=== PATIENT | male | born 1965 | race Caucasian/White ===

== ENCOUNTER 2020-05-26 07:16 | Outpatient (REF) | payer OTHER, SELFPAY ==
--- NOTE | 2020-05-26 | MR_ITS ---
EXAMINATION: MR LUMBAR SPINE WITHOUT CONTRAST CLINICAL INFORMATION: Radiculopathy. History of large disc extrusion with stenosis/annular tearing. Bilateral sciatic pain. Bilateral leg pain, weakness, and numbness. COMPARISON: Lumbar spine radiographs dated 11/24/2013 TECHNIQUE: MRI of the lumbar spine was obtained using routine sequences without contrast. FINDINGS: VERTEBRAL BODIES AND PARASPINAL STRUCTURES: Straightening of the normal lumbar lordosis, which may be positional or related to muscular spasm. No acute fracture or subluxation. No loss of vertebral body height. Prominent multilevel loss of intervertebral disc height with endplate osteophytes. Heterogeneous marrow signal, which may be related to degenerative endplate changes. The visualized paraspinal soft tissues are unremarkable. CONUS MEDULLARIS AND CAUDA EQUINA: Normal, terminating at the level of L1. SPINAL LEVELS: T12-L1: Shallow broad-based disc bulge with a left extraforaminal disc-osteophyte complex which contacts the exiting left T12 nerve root. Bilateral facet arthropathy and thickening of the ligamentum flavum with minimal central canal and mild left neural foraminal stenosis. L1-L2: Broad-based disc-osteophyte complex, asymmetric to the left with bilateral facet arthropathy and thickening of the ligamentum flavum causing mild central canal as well as mild left neural foraminal stenosis. Minimal right neural foraminal stenosis. L2-L3: Prominent broad-based disc-osteophyte complex, asymmetric to the left which contacts the exiting left L2 nerve root. Bilateral facet arthropathy and thickening of the ligamentum flavum causing ocov-tb-[id number] central canal stenosis as well as cjcc-tm-rpyclewn left and mild right neural foraminal stenosis. L3-L4: Broad-based disc-osteophyte complex, asymmetric to the right which contacts the right exiting L3 nerve root. Prominent bilateral facet arthropathy and thickening of the ligamentum flavum causing [id number] central canal stenosis as well as moderate bilateral neural foraminal stenosis. L4-L5: Broad-based disc-osteophyte complex with a left paracentral disc protrusion. Prominent bilateral facet arthropathy and thickening of the ligamentum flavum. This causes severe central canal stenosis as well as [id number] bilateral neural foraminal stenosis. L5-S1: Broad-based disc bulge with bilateral facet arthropathy and thickening of the ligamentum flavum causing moderate central canal as well as severe bilateral neural foraminal stenosis. MR/MR lumbar spine wo con IMPRESSION: 1. L4-L5 broad-based disc-osteophyte complex with a left paracentral disc protrusion, bilateral facet arthropathy, and thickening of the ligamentum flavum. This causes severe central canal stenosis as well as [id number] bilateral neural foraminal stenosis. 2. L5-S1 broad-based disc bulge with bilateral facet arthropathy and thickening of the ligamentum flavum causing moderate central canal as well as severe bilateral neural foraminal stenosis. 3. Additional multilevel degenerative disc disease with disc-osteophyte complexes, central canal, and bilateral neural foraminal stenosis, as above.
== END 2020-05-26 07:17 | disposition home or self-care (01) ==
LOC: HO.MRI 07:16
PROVIDERS: PCP Internal Medicine; Visit Provider Nurse Practitioner Women's Health
DX: M54.17 Radiculopathy, lumbosacral region (principal)
CPT/HCPCS: 72148

== ENCOUNTER 2021-07-06 07:15 | Outpatient (REF) | payer OTHER, SELFPAY ==
--- NOTE | ~2021-07-06 | XR_ITS ---
EXAMINATION: XR HIP, LEFT CLINICAL INFORMATION: Pain COMPARISON: None TECHNIQUE: Two views of the left hip. FINDINGS: Bone alignment is normal. No fracture or dislocation is seen. There is arthritis at the left hip joint with joint space narrowing and osteophyte formation. Soft tissues are unremarkable. XR/XR hip LT min 2V IMPRESSION: Left hip arthritis.
[2021-07-06 07:34] LABS: MANUAL DIFF FLAG NO
[2021-07-06 08:02] LABS: Basophils Percent Auto 0.4 % (0-2); Eosinophils Absolute Auto 0.2 X10*3/uL (0.0-0.4); Eosinophils Percent Auto 2.3 % (0-4); Hematocrit 45.4 % (42.0-52.0); Hemoglobin 15.5 g/dl (14.0-18.0); Imm Gran Abs Auto 0.03 X10*3/uL (0.00-0.03); Imm Gran Pct Auto 0.4 % (0.0-0.4); Lymphocytes Absolute Auto 1.6 X10*3/uL (1.2-4.9); Lymphocytes Percent Auto 21.1 % (20-40); Mean Corpuscular HGB Conc 34.1 g/dl (31.0-36.0); Mean Corpuscular Hemoglobin 31.8 pg (27.0-33.0); Mean Platelet Volume 9.7 fL (9.4-12.4); Monocytes Absolute Auto 0.4 X10*3/uL (0.1-1.2); Monocytes Percent Auto 5.9 % (2-11); Neutrophils Absolute Auto 5.2 x10*3/uL (2.0-8.3); Neutrophils Percent Auto 69.9 % (45-73); Platelet Count 296 X10*3/uL (160-400); Red Blood Count 4.88 X10*6/uL (4.60-5.80); Red Cell Distribution Width 13.5 % (11.0-16.0); White Blood Count 7.5 X10*3/uL (4.8-10.8)
[2021-07-06 08:21] LABS: Alanine Aminotransferase 23 U/L (0-40); Albumin Level 4.3 g/dL (3.5-5.0); Alkaline Phosphatase 83 U/L (39-117); Anion Gap 11 (12-20); Aspartate Amino Transferase 18 U/L (5-37); Bilirubin Total 0.4 mg/dL (0.0-1.0); Blood Urea Nitrogen 21 mg/dL (9-16); Calcium 9.5 mg/dL (8.4-10.2); Carbon Dioxide 27 mmol/L (22-29); Chloride 104 mmol/L (96-108); Cholesterol 273 mg/dL; Estimated Glomerular Filt Rate > 60; Glucose Fasting 109 mg/dL (60-99); HDL Cholesterol 54 mg/dL; LDL Cholesterol Calculated 198 mg/dl; Magnesium 2.3 mg/dL (1.6-2.6); Potassium 4.4 mmol/L (3.3-5.1); Sodium 138 mmol/L (135-145); Total Protein 6.9 g/dL (6.5-8.0); Triglycerides 105 mg/dL
[2021-07-06 08:43] LABS: TSH reflex Free T4 1.29 uIU/mL (0.32-4.0); Vitamin D 25-OH Total 13.3 ng/mL (>30)
[2021-07-06 08:52] LABS: Erythrocyte Sedimentation Rate 7 MM/HR (0-15)
[2021-07-06 10:08] LABS: Appearance Urine CLEAR; Color Urine YELLOW; Glucose Urine UA NEG (NEG); Leukocyte Esterase Urine NEG (NEG); Nitrite Urine NEG (NEG); Urine Blood NEG (NEG); Urine Ketones NEG (NEG); Urine Protein NEG (NEG-TRACE)
[2021-07-06 12:10] LABS: Folate 3.6 ng/mL (> or = 4.0); Vitamin B12 406 pg/mL (200-900)
== END 2021-07-06 07:16 | disposition home or self-care (01) ==
LOC: HO.LAB 07:15
PROVIDERS: PCP Internal Medicine; Visit Provider Internal Medicine
DX: M25.552 Pain in left hip (principal); E78.00 Pure hypercholesterolemia, unspecified; E55.9 Vitamin D deficiency, unspecified; I73.9 Peripheral vascular disease, unspecified; R20.2 Paresthesia of skin; I10 Essential (primary) hypertension
CPT/HCPCS: 36415; 73502; 80053; 80061; 81003; 82306; 82607; 82746; 83735; 84443; 85025; 85652

== ENCOUNTER 2021-08-06 09:14 | Outpatient (AMB) | payer OTHER, SELFPAY ==
[2021-08-06 09:21] VITALS: BP 152/90; PULSE 68; TEMP 36.4; O2SAT 98; BMI 30.5
--- NOTE | 2021-08-06 09:21 | MHC.PC.OV ---
Vital Signs 08/06/21 09:21 Height 5 ft 7 in Weight 195 lb BMI 30.5 BP 152/90 H Pulse 68 Pulse Source Pulse Oximeter Temp 97.5 F Pulse Oximetry (%) 98 Oxygen Delivery Method Room Air Intake Visit Reasons: 1 Month Follow Up [employer] Required: No Accompanied by: Self / Same As Patient Allergies No Known Drug Allergies Allergy (Mild, Verified 01/12/25 10:48) Unknown Medication List - Last Reconciled 08/06/21 by Lucio Muir MD No Known Home Meds Tobacco use date assessed: 08/06/21 HPI 1 Month Follow Up HPI Details Patient comes in today for his follow up visit States that he feels okay Is scheduled for his arterial studies of the lower extremities tomorrow Denies any headaches or dizziness Denies any chest pains, no SOB No nausea/vomiting, no abdominal pain No change in bowel habits noted Had his follow up labs done last month - to discuss his results [facility] Medical History (Updated 01/12/25 @ 10:57 by Lucio Muir MD) Vitamin D deficiency Alcohol use disorder Overweight (BMI 25.0-29.9) Osteoarthritis of left hip Smoker Lumbar degenerative disc disease Pure hypercholesterolemia Surgical History History of nasal surgery Family History Mother Heart problem Arthritis Father Kidney failure Alcohol abuse Other Substance abuse Social History Housing: House Alcohol intake: current Alcohol intake frequency: 3 or more drinks per day Alcohol type: beer Patient Tobacco Use Status: Current everyday Tobacco user Cigarette Packs Per Day: 1.5 e-Cigarette/Vaping Use: Never Used Second Hand Smoke Exposure: Yes service: No Current occupational status: unemployed Cognitive needs: No Hearing needs: No Vision needs: No Questionnaire PHQ-9 Over the last 2 weeks, how often have you been bothered by any of the following problems? 1. Little interest or pleasure in doing things: not at all 2. Feeling down, depressed, or hopeless: not at all 3. Trouble falling or staying asleep, or sleeping too much: not at all 4. Feeling tired or having little energy: not at all 5. Poor appetite or overeating: not at all 6. Feeling bad about yourself - or that you are a failure or have let yourself or your family down: not at all 7. Trouble concentrating on things, such as reading the newspaper or watching television: not at all 8. Moving or speaking so slowly that other people could have noticed. Or the opposite - being so fidgety or restless that you have been moving around a lot more than usual: not at all 9. Thoughts that you would be better off or of hurting yourself in some way: not at all Total score: 0 Depression Screening Interpretation: Negative 18544 - PHQ-9 Billing: Yes Source: Developed by Drs. Oscar Jolly, Miriam Riley, Darryn Prieto and colleagues, with an educational madhav from [employer]. Thrive Questionnaire Date Thrive assessed: 08/06/21 I am a: Patient What is your living situation today?: I have a steady place to live Within the past 12 months, did the food you bought not last and you didn't have the money to get more?: Never true Within the past 12 months, did you worry whether your food would run out before you got money to buy more?: Never true Do you have trouble paying for medicines?: No Do you have trouble getting transportation to medical appointments?: No Do you have trouble paying your heating and electricity bill?: No Do you have trouble taking care of your child, family member or friend?: No Do you have trouble with day-to-day activities such as bathing, preparing meals, shopping, managing finances, etc.?: No Are you currently unemployed and looking for a job?: No Are you interested in more education?: No Currently or been in a relationship where the following occur: no concerns reported AUDIT C Alcohol Use Questionnaire (AUDIT-C) 1. How often do you have a drink containing alcohol?: 4 or more times a week 2. How many drinks containing alcohol do you have on a typical day when you are drinking?: 1 or 2 3. How often do you have six or more drinks on one occasion?: Never Total Score: 4 Score Reviewed/Action Taken: Yes WILLAM-7 AMB Questionnaire WILLAM-7 Date WILLAM - 7 assessed: 08/06/21 Feeling nervous, anxious, or on edge: 0 = Not at all Not being able to stop or control worryin = Not at all Worrying too much about different things: 0 = Not at all Trouble relaxin = Not at all Being so restless that it is hard to sit still: 0 = Not at all Becoming easily annoyed or irritable: 0 = Not at all Feeling afraid as if something awful might happen: 0 = Not at all Total WILLAM-7 score (0-4 normal; 5-9 mild; 10-14 moderate; 15-21 severe): 0 Source: Developed by Drs. Oscar Jolly, Miriam Riley, Darryn Prieto and colleagues, with an educational madhav from [employer]. Review of Systems Const Denies chills, Denies fatigue, Denies fever(s) and Denies headache(s) ENT Denies headache(s), Denies sinus pain and Denies sore throat Card Denies chest pain, Denies palpitations and Denies dyspnea Resp Denies cough and Denies dyspnea GI Denies abdominal pain, Denies constipation, Denies heartburn, Denies diarrhea, Denies nausea and Denies vomiting Denies dysuria and Denies nocturia Musc Reports numbness (on and off in the right arm) Neuro Details: left leg feels heavy often, especially with increased activity; left foot feels cold and numb at times Denies headache(s) and Reports numbness (on and off in the right arm) Endo Denies fatigue and Denies palpitations Physical exam (Primary Care) Vital Signs: Last Vital Signs Temp 97.5 F 08/06/21 09:21 Pulse 68 08/06/21 09:21 BP 152/90 H 08/06/21 09:21 Pulse Ox 98 08/06/21 09:21 Oxygen Delivery Method Room Air 08/06/21 09:21 BMI result Body Mass Index 30.5 Tobacco/Smoking Status: Tobacco use Status Tobacco use date assessed 08/06/21 08/06/21 09:23 Patient Tobacco Use Status Current everyday Tobacco 08/06/21 09:23 PHQ-9: PHQ-9 Score PHQ-9: Total score 0 08/06/21 09:51 Depression Screening Interpretation: Negative Thrive Assessment: Date of Thrive Assessment Date Thrive assessed 08/06/21 08/06/21 09:23 Currently or been in a relationship where the following occur: no concerns reported Const General: no acute distress and alert HENMT Ears: TM's normal bilaterally and EAC's normal Throat: Yes posterior oropharynx normal and Yes tonsils normal (no TP congestion) Neck Neck: Yes no lymphadenopathy and Yes supple Resp Auscultation: clear to auscultation bilaterally, no rales and no wheezes Cardio Rate: regular rate Rhythm: regular rhythm Heart sounds: no murmurs GI Palpation (GI): Soft to palpation, nontender and No hepatosplenomegaly present Skin General skin exam: no rashes or lesions noted Extrem General: Yes no clubbing, cyanosis or edema Results Reviewed Results Reviewed: Laboratory Tests 07/06/21 07/06/21 07/06/21 07:30 07:32 07:32 WBC 7.5 Hgb 15.5 Hct 45.4 Plt Count 296 ESR 7 Sodium Potassium Creatinine Estimated GFR Fasting Glucose Calcium Magnesium AST ALT Triglycerides Cholesterol LDL Cholesterol, Calc HDL Cholesterol Vitamin B12 25-OH Vitamin D Total TSH Ur Specific [place] 1.020 Urine Protein NEG Urine Glucose (UA) NEG Urine Blood NEG 07/06/21 07/06/21 07:32 07:32 WBC Hgb Hct Plt Count ESR Sodium 138 Potassium 4.4 Creatinine 0.94 Estimated GFR > 60 Fasting Glucose 109 H Calcium 9.5 Magnesium 2.3 AST 18 ALT 23 Triglycerides 105 Cholesterol 273 LDL Cholesterol, Calc 198 HDL Cholesterol 54 Vitamin B12 406 25-OH Vitamin D Total 13.3 TSH 1.29 Ur Specific [place] Urine Protein Urine Glucose (UA) Urine Blood Coding Level of Care Code Admin Sign Off/No Billing Diagnoses Claudication of left lower extremity I73.9 Pure hypercholesterolemia E78.00 Lumbar degenerative disc disease M51.36 Paresthesia of right upper limb R20.2 Osteoarthritis of left hip M16.12 Impaired fasting glucose R73.01 Smoker F17.200 Obesity (BMI 30-39.9) E66.9 Additional Codes PHQ-9 - 46344 - PHQ-9 Billing: Yes ([id number])
== END 2021-08-06 10:02 | disposition home or self-care (01) ==
LOC: HO.HMGH 09:14
PROVIDERS: PCP Internal Medicine; Visit Provider Internal Medicine
DX: I73.9 Peripheral vascular disease, unspecified (principal); E78.00 Pure hypercholesterolemia, unspecified; M51.36 Other intervertebral disc degeneration, lumbar region; R20.2 Paresthesia of skin; M16.12 Unilateral primary osteoarthritis, left hip; R73.01 Impaired fasting glucose; F17.200 Nicotine dependence, unspecified, uncomplicated; E66.9 Obesity, unspecified
CPT/HCPCS: 96127; 99499

== ENCOUNTER 2021-08-07 09:17 | Outpatient (REF) | payer OTHER, SELFPAY ==
--- NOTE | ~2021-08-07 | US_ITS ---
EXAMINATION: NONINVASIVE ASSESSMENT OF THE ARTERIES OF BOTH LOWER EXTREMITIES WITH BILATERAL LOWER EXTREMITY DUPLEX CLINICAL INFORMATION: Peripheral vascular disease TECHNIQUE: Bilateral lower extremity duplex Doppler techniques with wave form analysis and measurement of velocities in the common femoral, profunda femoral, superficial femoral, popliteal and tibial arteries. The study was performed only at rest. COMPARISON: None FINDINGS: a) AT REST: RIGHT LE. Right direct duplex Doppler findings: There is calcified atherosclerotic plaque. * Common femoral artery: 125 cm/s, Diastolic flow reversal: Yes * Superficial femoral artery (proximal, mid, distal): 108, 83 and 113 cm/s, Diastolic flow reversal: Yes * Popliteal artery: 76 cm/s, Diastolic flow reversal: Yes * Posterior tibial artery: 94 cm/s, Diastolic flow reversal: Yes LEFT LE. Left direct duplex Doppler findings: There is calcified atherosclerotic plaque * Common femoral artery: 165 cm/s, Diastolic flow reversal: Yes * Superficial femoral artery (proximal, mid, distal): 78, 67 and 84 cm/s, Diastolic flow reversal: No, biphasic in the proximal and mid SFA and triphasic in the distal SFA * Popliteal artery: 37 cm/s, Diastolic flow reversal: No, biphasic * Posterior tibial artery: 56 cm/s, Diastolic flow reversal: Yes * US/US arterial duplex LE BI IMPRESSION: Right leg: Mild calcified plaque. No visible stenosis. Normal peak systolic velocities and waveforms. Left: Mild calcified plaque. No visible stenosis. Increased peak systolic velocity in the left common femoral artery suggestive of mild stenosis. Abnormal waveforms in the proximal and mid SFA, and popliteal arteries and slightly decreased velocities compared to the right leg.
== END 2021-08-07 09:18 | disposition home or self-care (01) ==
LOC: HO.US 09:17
PROVIDERS: PCP Internal Medicine; Visit Provider Internal Medicine
DX: I73.9 Peripheral vascular disease, unspecified (principal); E78.00 Pure hypercholesterolemia, unspecified
CPT/HCPCS: 93925

== ENCOUNTER 2021-11-06 02:18 | Emergency (ER) | payer OTHER, SELFPAY ==
[2021-11-06 02:35] VITALS: BP 169/87; PULSE 59; RESP 16; TEMP 36.6; O2SAT 97; BMI 28.5
--- NOTE | 2021-11-06 06:16 | ED_ITS ---
HPI - General Adult General Chief complaint: General Medical Stated complaint: toe infection Time Seen by Provider: 11/06/21 06:15 History of Present Illness HPI narrative: patient is a 56-year-old male presents today with having left 5th toe pain has been ongoing for the last few weeks. Patient was wearing a very tight boot. Complaining of pain worsen with steps. No fever no chills no nausea no vomiting. No systemic complaints. no history of diabetes Related Data Previous Rx's Medication Instructions Recorded cephalexin 500 mg capsule 500 mg PO TID 7 days #21 caps 11/06/21 Allergies Allergy/AdvReac Type Severity Reaction Status Date / Time No Known Drug Allergies Allergy Mild Unknown Verified 08/06/21 09:45 Review of Systems 2 Review of Systems: Positive pain to the toe PMFSH Past Medical History Attestation statement: The following information was validated with the patient. Medical History Lumbar degenerative disc disease Obesity (BMI 30-39.9) Osteoarthritis of left hip Pure hypercholesterolemia Smoker Surgical History History of nasal surgery Family History Family History Mother Heart problem Arthritis Father Kidney failure Alcohol abuse Other Substance abuse Social History Social History Housing: House Alcohol intake: current Alcohol intake frequency: 3 or more drinks per day Alcohol type: beer Patient Tobacco Use Status: Current everyday Tobacco user Cigarette Packs Per Day: 1.5 Second Hand Smoke Exposure: Yes Advance Directives: No service: No Current occupational status: unemployed Cognitive needs: No Hearing needs: No Vision needs: No Physical Exam ED Vital Signs: Vital Signs - 24 hr 11/06/21 02:35 Temperature 97.8 F Pulse Rate 59 Respiratory Rate 16 Blood Pressure 169/87 H Pulse Oximetry 97 Oxygen Delivery Method Room Air BMI result Body Mass Index 28.5 Appearance: Alert. Oriented X3. No acute distress. Eyes: Pupils equal, round and reactive to light. ENT: Pharynx normal. Neck: Normal inspection. Neck supple. No lymph nodes noted. No crepitus CVS: Normal heart rate and rhythm. Pulses normal. Normal S1 and S2 Respiratory: No respiratory distress. Breath sounds normal. No Wheezing. No rales Abdomen: Soft and nontender. No rigidity. No distention. good BS x4 Skin: Skin warm and dry. Normal skin color. Normal skin turgor. Extremities: No lower extremity edema. examination of the left foot the pinky toe has a hematoma on the palmar side. Sensation grossly intact there is no warmth to touch. Neuro: Oriented X 3. No motor deficit. No sensory deficit. Moving all extermities. No slurred speech Medical Decision Making MDM Narrative Medical decision making narrative: Question hematoma causing patient's pain. No signs of infection at this time. There is no redness there is no warmth to touch. Will ask patient to use Motrin rest ice. Follow up on an outpatient basis Discharge Plan Discharge Clinical Impression: Hematoma Patient Disposition: Home, Self-Care Instructions: Foot Contusion (ED) Prescriptions: New cephalexin 500 mg capsule 500 mg PO TID 7 Days Qty: 21 0RF Referrals: Lucio Muir MD [Primary Care Provider] -
== END 2021-11-06 06:36 | disposition home or self-care (01) ==
PROVIDERS: Emergency Provider Emergency Medicine Emergency Medical Services; PCP Internal Medicine
DX: S90.122A Contusion of left lesser toe(s) without damage to nail, initial encounter (principal); X58.XXXA Exposure to other specified factors, initial encounter; Y93.9 Activity, unspecified; Y92.9 Unspecified place or not applicable; Y99.9 Unspecified external cause status; F17.210 Nicotine dependence, cigarettes, uncomplicated; Z71.6 Tobacco abuse counseling
CPT/HCPCS: 99282; 99283

== ENCOUNTER 2021-12-18 08:38 | Outpatient (REF) | payer OTHER, SELFPAY ==
[2021-12-18 09:16] LABS: Estimated Average Glucose 105 mg/dL; Hemoglobin A1c % 5.3 %
[2021-12-18 09:38] LABS: Alanine Aminotransferase 31 U/L (0-40); Albumin Level 4.4 g/dL (3.5-5.0); Alkaline Phosphatase 95 U/L (39-117); Anion Gap 15 (12-20); Aspartate Amino Transferase 27 U/L (5-37); Bilirubin Total 0.4 mg/dL (0.0-1.0); Blood Urea Nitrogen 20 mg/dL (9-16); Calcium 9.2 mg/dL (8.4-10.2); Carbon Dioxide 21 mmol/L (22-29); Chloride 108 mmol/L (96-108); Cholesterol 229 mg/dL; Estimated Glomerular Filt Rate > 60; Glucose Fasting 108 mg/dL (60-99); HDL Cholesterol 41 mg/dL; LDL Cholesterol Calculated 172 mg/dl; Potassium 4.4 mmol/L (3.3-5.1); Sodium 140 mmol/L (135-145); Total Protein 7.2 g/dL (6.5-8.0); Triglycerides 82 mg/dL
[2021-12-18 10:01] LABS: Vitamin D 25-OH Total 34.7 ng/mL (>30)
== END 2021-12-18 08:39 | disposition home or self-care (01) ==
LOC: HO.LAB 08:38
PROVIDERS: PCP Internal Medicine; Visit Provider Internal Medicine
DX: E55.9 Vitamin D deficiency, unspecified (principal); E78.00 Pure hypercholesterolemia, unspecified; R73.01 Impaired fasting glucose
CPT/HCPCS: 36415; 80053; 80061; 82306; 83036

== ENCOUNTER 2024-04-06 15:15 | Outpatient (AMB) | payer OTHER, SELFPAY ==
[2024-04-06 15:22] VITALS: BP 122/80; PULSE 77; O2SAT 98; BMI 28.4
--- NOTE | 2024-04-06 15:22 | MHC.PC.OV ---
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 Accompanied by: Self / Same As Patient Allergies No Known Drug Allergies Allergy (Mild, Verified 04/06/24 15:37) Unknown Medication List - Last Reconciled 04/06/24 by Lucio Muir MD No Known Home Meds Tobacco use date assessed: 04/06/24 Dental Screening Dental Screen Date: 04/06/24 Did you have a dental visit in the last 12 months?: Yes Did you have a dental problem in the last 6 months where you did not have access to dental care?: No Was dental information given to patient?: Patient has dentist HPI High BP HPI Details Patient comes in today for follow-up and further evaluation of reported high blood pressure readings recently that were obtained by her daughter when she helped him check his blood pressure States that his systolic blood pressure was reportedly around 190 mm when his daughter, who just graduated from nursing school, helped check his blood pressure sometime last week He was last seen here almost 2 years ago on 04/15/2022 Patient states that he feels well overall but continues to experience recurrent cramping pain in his left thigh and left leg with prolonged walking - states that this has been going on for the past 2 to 3 years now and he feels that this has slightly increased recently Admits that he still drinks alcohol often - drinks at least a 6 pack almost everyday although he states that he has thought about cutting back his drinking recently He denies any headaches or dizziness Denies any chest pains, no shortness of breath No nausea/vomiting, no abdominal pain No change in bowel habits noted [facility] Medical History (Updated 04/07/24 @ 06:22 by Lucio Muir MD) Alcohol use disorder Overweight (BMI 25.0-29.9) Osteoarthritis of left hip Smoker Lumbar degenerative disc disease Pure hypercholesterolemia Surgical History History of nasal surgery Family History Mother Heart problem Arthritis Father Kidney failure Alcohol abuse Other Substance abuse Social History (Updated 04/07/24 @ 06:01 by Lucio Muir MD) Housing: House Alcohol intake: current Alcohol intake frequency: 3 or more drinks per day Alcohol type: beer Patient Tobacco Use Status: Current everyday Tobacco user Cigarette Packs Per Day: 1.5 e-Cigarette/Vaping Use: Never Used Second Hand Smoke Exposure: Yes service: No Current occupational status: unemployed Cognitive needs: No Hearing needs: No Vision needs: No Questionnaire PHQ-9 Over the last 2 weeks, how often have you been bothered by any of the following problems? 1. Little interest or pleasure in doing things: not at all 2. Feeling down, depressed, or hopeless: not at all 3. Trouble falling or staying asleep, or sleeping too much: not at all 4. Feeling tired or having little energy: not at all 5. Poor appetite or overeating: not at all 6. Feeling bad about yourself - or that you are a failure or have let yourself or your family down: not at all 7. Trouble concentrating on things, such as reading the newspaper or watching television: not at all 8. Moving or speaking so slowly that other people could have noticed. Or the opposite - being so fidgety or restless that you have been moving around a lot more than usual: not at all 9. Thoughts that you would be better off or of hurting yourself in some way: not at all Total score: 0 Depression Screening Interpretation: Negative Depression Screening Done: Yes 58632 - PHQ-9 Billing: Yes Source: Developed by Drs. Oscar Jolly, Miriam Riley, Darryn Prieto and colleagues, with an educational madhav from [employer]. Thrive Questionnaire Date Thrive assessed: 04/06/24 I am a: Patient What is your living situation today?: I have a steady place to live Within the past 12 months, did the food you bought not last and you didn't have the money to get more?: Never true Within the past 12 months, did you worry whether your food would run out before you got money to buy more?: Never true Do you have trouble paying for medicines?: No Do you have trouble getting transportation to medical appointments?: No Do you have trouble paying your heating and electricity bill?: No Do you have trouble taking care of your child, family member or friend?: No Do you have trouble with day-to-day activities such as bathing, preparing meals, shopping, managing finances, etc.?: No Are you currently unemployed and looking for a job?: No Are you interested in more education?: No Please select the resources that you would like help with: None Currently or been in a relationship where the following occur: No concerns reported THRIVE Score: 0 AUDIT C Alcohol Use Questionnaire (AUDIT-C) 1. How often do you have a drink containing alcohol?: Never 3. How often do you have six or more drinks on one occasion?: Never Total Score: 0 Score Reviewed/Action Taken: Yes WILLAM-7 AMB Questionnaire WILLAM-7 Date WILLAM - 7 assessed: 04/06/24 Feeling nervous, anxious, or on edge: 0 = Not at all Not being able to stop or control worryin = Not at all Worrying too much about different things: 0 = Not at all Trouble relaxin = Not at all Being so restless that it is hard to sit still: 0 = Not at all Becoming easily annoyed or irritable: 0 = Not at all Feeling afraid as if something awful might happen: 0 = Not at all Total WILLAM-7 score (0-4 normal; 5-9 mild; 10-14 moderate; 15-21 severe): 0 Source: Developed by Drs. Oscar Jolly, Miriam Riley, Darryn Prieto and colleagues, with an educational madhav from [employer]. Review of Systems Const Denies chills, Denies fatigue, Denies fever(s) and Denies headache(s) ENT Denies dysphagia, Denies dizziness, Denies otalgia, Denies headache(s), Denies neck pain, Denies odynophagia and Denies sore throat Card Denies chest pain, Denies palpitations and Denies dyspnea Resp Denies chest congestion, Denies cough, Denies pain with cough and Denies dyspnea GI Denies abdominal pain, Denies constipation, Denies dysphagia, Denies heartburn, Denies diarrhea, Denies nausea, Denies odynophagia and Denies vomiting Denies dysuria, Denies nocturia and Denies urinary frequency Musc Reports back pain (on and off), Denies arthralgias and Denies neck pain Skin/Breast Denies rash Neuro Denies dizziness and Denies headache(s) Endo Denies fatigue and Denies palpitations Physical exam (Primary Care) Vital Signs: Last Vital Signs Pulse 77 04/06/24 15:22 BP 128/82 04/06/24 15:53 Pulse Ox 98 04/06/24 15:22 Oxygen Delivery Method Room Air 04/06/24 15:22 BMI result Body Mass Index 28.4 Tobacco/Smoking Status: Tobacco use Status Tobacco use date assessed 04/06/24 04/06/24 15:24 Patient Tobacco Use Status Current everyday Tobacco 04/06/24 15:24 e-Cigarette/Vaping Use Never Used 04/06/24 15:34 PHQ-9: PHQ-9 Score PHQ-9: Total score 0 04/06/24 16:01 Depression Screening Interpretation: Negative Thrive Assessment: Date of Thrive Assessment Date Thrive assessed 04/06/24 04/06/24 15:24 Currently or been in a relationship where the following occur: No concerns reported Const General: no acute distress and alert HENMT Ears: TM's normal bilaterally and EAC's normal Throat: Yes posterior oropharynx normal and Yes tonsils normal (no TP congestion) Neck Neck: Yes supple and No lymphadenopathy Thyroid: Thyroid normal Resp Auscultation: clear to auscultation bilaterally, no rales and no wheezes Cardio Rate: regular rate Rhythm: regular rhythm Heart sounds: no murmurs GI Palpation (GI): Soft to palpation and nontender Auscultation: normal bowel sounds General: Yes no CVA tenderness Back/Spine/Pelvis Back: no CVA tenderness Thoracic/Lumbar Spine: lumbar spinal tenderness (mild) Skin Rashes: no rashes Extrem General: Yes no clubbing, cyanosis or edema Coding Level of Care Code Est Pt Level 4 (05539) Diagnoses Pure hypercholesterolemia E78.00 Degeneration of intervertebral disc of lumbar region with discogenic back pain M51.360 Disc-related pain type: discogenic back pain only Primary osteoarthritis of left hip M16.12 Osteoarthritis type: primary Claudication of left lower extremity I73.9 Elevated blood pressure reading R03.0 Impaired fasting glucose R73.01 Alcohol use disorder F10.90 Smoker F17.200 Overweight (BMI 25.0-29.9) E66.3 Additional Codes PHQ-9 - 65918 - PHQ-9 Billing: Yes ([id number]) Assessment & Plan Assessment & Plan (1) Pure hypercholesterolemia: Code(s): E78.00 - Pure hypercholesterolemia, unspecified Category: Medical Plan: Reinforced low cholesterol diet; patient prefers to continue with diet modification alone rather than taking medications to help lower his cholesterol Have advised him that his cholesterol numbers back in December 2021 have improved somewhat from previous although they were still significantly elevated, with his total cholesterol at 229 mg/dl and LDL cholesterol at 172 mg/dl Will recheck labs and fasting lipids NANI for follow-up (2) Lumbar degenerative disc disease: Code(s): M51.36 - Other intervertebral disc degeneration, lumbar region Category: Medical Qualifiers: Disc-related pain type: discogenic back pain only Qualified Code(s): M51.360 - Other intervertebral disc degeneration, lumbar region with discogenic back pain only Plan: Lumbar spine MRI done back in 2020 revealed (+) multilevel degenerative disc disease with disc-osteophyte complexes, central canal, and bilateral neural foraminal stenosis There is (+) L4-L5 broad-based disc-osteophyte complex with a left paracentral disc protrusion, bilateral facet arthropathy, and thickening of the ligamentum flavum. This causes severe central canal stenosis as well as [id number] bilateral neural foraminal stenosis Also (+) L5-S1 broad-based disc bulge with bilateral facet arthropathy and thickening of the ligamentum flavum causing moderate central canal as well as severe bilateral neural foraminal stenosis. Reinforced activity and weight lifting restrictions Have advised him that if his lower back acts up again, we may need to send him for repeat MRI and refer him to Neurosurgery for further evaluation and management (3) Osteoarthritis of left hip: Code(s): M16.12 - Unilateral primary osteoarthritis, left hip Category: Medical Qualifiers: Osteoarthritis type: primary Qualified Code(s): M16.12 - Unilateral primary osteoarthritis, left hip Plan: Left hip x-rays done in June 2021 showed (+) left hip OA changes - arthritis at the left hip joint with joint space narrowing and osteophyte formation Will consider referring to Orthopedics for further management if his hip symptoms continue to get worse (4) Claudication of left lower extremity: Code(s): I73.9 - Peripheral vascular disease, unspecified Category: Medical Plan: Arterial duplex of the left lower extremity done a couple of years ago on 08/07/2021 revealed (+) some compromise in the left lower extremity (see below): Right leg: Mild calcified plaque. No visible stenosis. Normal peak systolic velocities and waveforms. Left: Mild calcified plaque. No visible stenosis. Increased peak systolic velocity in the left common femoral artery suggestive of mild stenosis. Abnormal waveforms in the proximal and mid SFA, and popliteal arteries and slightly decreased velocities compared to the right leg Will wait and see how his labs come out first Will consider referring him to vascular surgery symptoms persist or get worse (5) Elevated blood pressure reading: Code(s): R03.0 - Elevated blood-pressure reading, without diagnosis of hypertension Category: Medical Plan: Have reassured patient that his blood pressure readings were normal when it was a few times here in the office today Had advised him the high blood pressure reading that his daughter obtained a couple weeks ago is likely either situational or was an error Reinforce low-sodium diet I have advised patient to have his blood pressure checked/monitored regularly for now - goal is to keep his systolic BP around 120 mm or less (6) Impaired fasting glucose: Code(s): R73.01 - Impaired fasting glucose Category: Medical Plan: Reinforced low calorie/low carb diet, exercise as tolerated Will recheck his FBS and HgbA1c for follow up (7) Alcohol use disorder: Code(s): F10.90 - Alcohol use, unspecified, uncomplicated Category: Medical Plan: He is again advised to try cutting back on his drinking Have advised him that we can refer him for help with this whenever he feels is ready to quit (8) Smoker: Code(s): F17.200 - Nicotine dependence, unspecified, uncomplicated Category: Social Hx Plan: Patient is counseled again on smoking cessation (9) Overweight (BMI 25.0-29.9): Code(s): E66.3 - Overweight Category: Medical Plan: Reinforced diet/exercise as tolerated/lose weight Plan Follow up in 1 to 2 months Orders: Orders Complete Blood Count Auto Diff 04/06/24 D64.9 - Anemia, unspecified, E78.00 - Pure hypercholesterolemia, unspecified, I73.9 - Peripheral vascular disease, unspecified Vitamin D 25-OH Total 04/06/24 E55.9 - Vitamin D deficiency, unspecified, E78.00 - Pure hypercholesterolemia, unspecified, I73.9 - Peripheral vascular disease, unspecified TSH reflex Free T4 04/06/24 E78.00 - Pure hypercholesterolemia, unspecified, I73.9 - Peripheral vascular disease, unspecified Homocysteine 04/06/24 E78.00 - Pure hypercholesterolemia, unspecified, I73.9 - Peripheral vascular disease, unspecified Vitamin B6 04/06/24 F10.20 - Alcohol dependence, uncomplicated Hemoglobin A1c 04/06/24 E78.00 - Pure hypercholesterolemia, unspecified, I73.9 - Peripheral vascular disease, unspecified, R73.01 - Impaired fasting glucose Comprehensive [place]. Panel Fast 04/06/24 E78.00 - Pure hypercholesterolemia, unspecified, I73.9 - Peripheral vascular disease, unspecified Lipid Panel 04/06/24 E78.00 - Pure hypercholesterolemia, unspecified, I73.9 - Peripheral vascular disease, unspecified Erythrocyte Sedimentation Rate 04/06/24 E78.00 - Pure hypercholesterolemia, unspecified, I73.9 - Peripheral vascular disease, unspecified Vitamin B12 and Folate 04/06/24 E53.8 - Deficiency of other specified B group vitamins, E78.00 - Pure hypercholesterolemia, unspecified, I73.9 - Peripheral vascular disease, unspecified UA CC w/rflx Micro + Cult 04/06/24 E78.00 - Pure hypercholesterolemia, unspecified, I73.9 - Peripheral vascular disease, unspecified, R30.0 - Dysuria Vitamin B1 04/06/24 F10.20 - Alcohol dependence, uncomplicated
[2024-04-06 15:36] VITALS: BP 130/82
[2024-04-06 15:53] VITALS: BP 128/82
== END 2024-04-06 16:05 | disposition home or self-care (01) ==
PROVIDERS: PCP Internal Medicine; Visit Provider Internal Medicine
DX: E78.00 Pure hypercholesterolemia, unspecified (principal); M51.360 Other intervertebral disc degeneration, lumbar region with discogenic back pain only; M16.12 Unilateral primary osteoarthritis, left hip; I73.9 Peripheral vascular disease, unspecified; R03.0 Elevated blood-pressure reading, without diagnosis of hypertension; R73.01 Impaired fasting glucose; F10.90 Alcohol use, unspecified, uncomplicated; F17.200 Nicotine dependence, unspecified, uncomplicated; E66.3 Overweight

== ENCOUNTER → 2024-04-06 15:15 | Outpatient (BNVA) | payer OTHER, SELFPAY | PROVIDERS: PCP Internal Medicine; Visit Provider Internal Medicine | DX: E78.00 Pure hypercholesterolemia, unspecified (principal); M51.360 Other intervertebral disc degeneration, lumbar region with discogenic back pain only; M16.12 Unilateral primary osteoarthritis, left hip; I73.9 Peripheral vascular disease, unspecified; R03.0 Elevated blood-pressure reading, without diagnosis of hypertension; R73.01 Impaired fasting glucose; F10.90 Alcohol use, unspecified, uncomplicated; E66.3 Overweight; Z68.28 Body mass index [BMI] 28.0-28.9, adult; F17.200 Nicotine dependence, unspecified, uncomplicated; Z71.6 Tobacco abuse counseling; Z71.3 Dietary counseling and surveillance | CPT/HCPCS: 96127; 99212 ==

== ENCOUNTER 2024-04-08 07:16 | Outpatient (REF) | payer OTHER, SELFPAY ==
[2024-04-08 07:42] LABS: Basophils Percent Auto 0.7 % (0-2); Eosinophils Absolute Auto 0.1 X10*3/uL (0.0-0.4); Eosinophils Percent Auto 2.3 % (0-4); Hematocrit 45.8 % (42.0-52.0); Hemoglobin 16.1 g/dl (14.0-18.0); Imm Gran Abs Auto 0.02 X10*3/uL (0.00-0.03); Imm Gran Pct Auto 0.3 % (0.0-0.4); Lymphocytes Absolute Auto 1.3 X10*3/uL (1.2-4.9); Lymphocytes Percent Auto 20.8 % (20-40); MANUAL DIFF FLAG NO; Mean Corpuscular HGB Conc 35.2 g/dl (31.0-36.0); Mean Corpuscular Hemoglobin 32.2 pg (27.0-33.0); Mean Corpuscular Volume 91.6 fL (80.0-98.0); Mean Platelet Volume 9.2 fL (9.4-12.4); Monocytes Absolute Auto 0.4 X10*3/uL (0.1-1.2); Monocytes Percent Auto 6.9 % (2-11); Neutrophils Absolute Auto 4.2 x10*3/uL (2.0-8.3); Platelet Count 271 X10*3/uL (160-400); Red Cell Distribution Width 13.5 % (11.0-16.0); White Blood Count 6.1 X10*3/uL (4.8-10.8)
[2024-04-08 07:55] LABS: Estimated Average Glucose 105 mg/dL; Hemoglobin A1c % 5.3 % (<6.0)
[2024-04-08 08:07] LABS: Alanine Aminotransferase 33 U/L (0-40); Albumin Level 4.5 g/dL (3.5-5.0); Alkaline Phosphatase 96 U/L (39-117); Anion Gap 13 (12-20); Aspartate Amino Transferase 31 U/L (5-37); Bilirubin Total 0.4 mg/dL (0.0-1.0); Blood Urea Nitrogen 8 mg/dL (9-16); Carbon Dioxide 28 mmol/L (22-29); Chloride 104 mmol/L (96-108); Cholesterol 245 mg/dL (<200); Estimated Glomerular Filt Rate > 60; Glucose Fasting 112 mg/dL (60-99); HDL Cholesterol 76 mg/dL (>40); LDL Cholesterol Calculated 153 mg/dL (<100); Potassium 4.1 mmol/L (3.3-5.1); Sodium 141 mmol/L (135-145); Total Protein 7.5 g/dL (6.5-8.0); Triglycerides 80 mg/dL (<150)
[2024-04-08 08:18] LABS: Appearance Urine Clear; Color Urine Yellow; Glucose Urine UA Negative (Negative); Leukocyte Esterase Urine Negative (Negative); Nitrite Urine Negative (Negative); PH 6.5 (5.0-9.0); Specific Gravity - Urine 1.015 (1.005-1.025); Urine Blood Negative (Negative); Urine Ketones Negative (Negative); Urine Protein Negative (Neg-Trace)
[2024-04-08 08:23] LABS: TSH reflex Free T4 1.52 uIU/mL (0.32-4.0)
[2024-04-08 08:26] LABS: Erythrocyte Sedimentation Rate 6 MM/HR (0-15)
[2024-04-08 08:34] LABS: Folate 8.8 ng/mL (> or = 4.0); Vitamin B12 534 pg/mL (200-900)
[2024-04-09 18:53] LABS: Homocysteine 13.4 umol/L (<11.4)
[2024-04-15 06:18] LABS: Vitamin B1 <6 nmol/L (8-30); Vitamin B6 9.1 ng/mL (2.1-21.7)
== END 2024-04-08 07:17 | disposition home or self-care (01) ==
LOC: HO.LAB 07:16
PROVIDERS: PCP Internal Medicine; Visit Provider Internal Medicine
DX: D64.9 Anemia, unspecified (principal); I73.9 Peripheral vascular disease, unspecified; E78.00 Pure hypercholesterolemia, unspecified; F10.20 Alcohol dependence, uncomplicated; E55.9 Vitamin D deficiency, unspecified; R73.01 Impaired fasting glucose; E53.8 Deficiency of other specified B group vitamins; R30.0 Dysuria
CPT/HCPCS: 36415; 80053; 80061; 81003; 82306; 82607; 82746; 83036; 83090; 84207; 84425; 84443; 85025; 85652

== ENCOUNTER 2024-08-31 14:14 | Outpatient (AMB) | payer OTHER, SELFPAY ==
[2024-08-31 14:15] VITALS: BP 126/72; PULSE 72; O2SAT 99; BMI 27.7
--- NOTE | 2024-08-31 14:15 | A.OFFPC_ITS ---
Vital Signs 08/31/24 14:15 Height 5 ft 7 in Weight 177 lb BMI 27.7 BP 126/72 Blood Pressure Location Lt brachial Position Sitting Pulse 72 Pulse Source Pulse Oximeter Pulse Oximetry (%) 99 Oxygen Delivery Method Room Air Intake Visit Reasons: hyperlipidemia, claudication, elevated BP Stave Block Roller Required: No Accompanied by: Self / Same As Patient Allergies No Known Drug Allergies Allergy (Mild, Verified 08/31/24 14:46) Unknown Medication List - Last Reconciled 08/31/24 by Lucio Muir MD No Known Home Meds Tobacco use date assessed: 08/31/24 Dental Screening Dental Screen Date: 08/31/24 Did you have a dental visit in the last 12 months?: Yes Did you have a dental problem in the last 6 months where you did not have access to dental care?: No Was dental information given to patient?: Patient has dentist HPI hyperlipidemia, claudication, elevated BP HPI Details Patient comes in today for his follow up visit States that he's had several episodes of watery diarrhea for the past 2 days but notes that his symptoms are better now as it looks like his diarrhea has now resolved States that he last had a bowel movement earlier this morning but has had none since and that his stools earlier this morning was starting to form States that he had some fried chicken and fries from the [employer] a couple of days ago and thinks that he ended up with some food poisoning from some spoiled food there He denies any nausea or vomiting or increased abdominal pain when he was having diarrhea over the past couple of days He denies any fever, headaches or dizziness Denies any chest pains, no SOB He had some follow up labs done back in March 2024 right after his last visit but has had no other follow up labs done since [facility] Medical History (Updated 08/31/24 @ 15:10 by Lucio Muir MD) Vitamin D deficiency Alcohol use disorder Overweight (BMI 25.0-29.9) Osteoarthritis of left hip Smoker Lumbar degenerative disc disease Pure hypercholesterolemia Surgical History History of nasal surgery Family History Mother Heart problem Arthritis Father Kidney failure Alcohol abuse Other Substance abuse Social History Housing: House Alcohol intake: current Alcohol intake frequency: 3 or more drinks per day Alcohol type: beer Patient Tobacco Use Status: Current everyday Tobacco user Cigarette Packs Per Day: 1.5 e-Cigarette/Vaping Use: Never Used Second Hand Smoke Exposure: Yes service: No Current occupational status: unemployed Cognitive needs: No Hearing needs: No Vision needs: No Questionnaire PHQ-9 Over the last 2 weeks, how often have you been bothered by any of the following problems? 1. Little interest or pleasure in doing things: not at all 2. Feeling down, depressed, or hopeless: not at all 3. Trouble falling or staying asleep, or sleeping too much: not at all 4. Feeling tired or having little energy: more than half the days 5. Poor appetite or overeating: not at all 6. Feeling bad about yourself - or that you are a failure or have let yourself or your family down: not at all 7. Trouble concentrating on things, such as reading the newspaper or watching television: not at all 8. Moving or speaking so slowly that other people could have noticed. Or the opposite - being so fidgety or restless that you have been moving around a lot more than usual: not at all 9. Thoughts that you would be better off or of hurting yourself in some way: not at all Total score: 2 Depression Screening Interpretation: Negative Depression Screening Done: Yes 40507 - PHQ-9 Billing: Yes Source: Developed by Drs. Oscar Jolly, Miriam Riley, Darryn Prieto and colleagues, with an educational madhav from [employer]. Thrive Questionnaire Date Thrive assessed: 08/31/24 I am a: Patient What is your living situation today?: I have a steady place to live Within the past 12 months, did the food you bought not last and you didn't have the money to get more?: Never true Within the past 12 months, did you worry whether your food would run out before you got money to buy more?: Never true Do you have trouble paying for medicines?: No Do you have trouble getting transportation to medical appointments?: No Do you have trouble paying your heating and electricity bill?: No Do you have trouble taking care of your child, family member or friend?: No Do you have trouble with day-to-day activities such as bathing, preparing meals, shopping, managing finances, etc.?: No Are you currently unemployed and looking for a job?: No Are you interested in more education?: No Please select the resources that you would like help with: None Currently or been in a relationship where the following occur: I choose not to answer THRIVE Score: 0 AUDIT C Alcohol Use Questionnaire (AUDIT-C) 1. How often do you have a drink containing alcohol?: 2-3 times a week 2. How many drinks containing alcohol do you have on a typical day when you are drinking?: 1 or 2 3. How often do you have six or more drinks on one occasion?: Never Total Score: 3 Score Reviewed/Action Taken: Yes WILLAM-7 AMB Questionnaire WILLAM-7 Date WILLAM - 7 assessed: 08/31/24 Feeling nervous, anxious, or on edge: 0 = Not at all Not being able to stop or control worryin = Not at all Worrying too much about different things: 2 = More than half the days Trouble relaxin = Not at all Being so restless that it is hard to sit still: 2 = More than half the days Becoming easily annoyed or irritable: 0 = Not at all Feeling afraid as if something awful might happen: 0 = Not at all Total WILLAM-7 score (0-4 normal; 5-9 mild; 10-14 moderate; 15-21 severe): 4 Source: Developed by Drs. Oscar Jolly, Miriam Riley, Darryn Prieto and colleagues, with an educational madhav from [employer]. Review of Systems Const Denies chills, Denies fatigue, Denies fever(s) and Denies headache(s) ENT Denies dysphagia, Denies dizziness, Denies otalgia, Denies headache(s), Denies neck pain, Denies odynophagia and Denies sore throat Card Denies chest pain, Denies palpitations and Denies dyspnea Resp Denies chest congestion, Denies cough and Denies dyspnea GI Denies abdominal pain, Denies constipation, Denies dysphagia, Denies heartburn, Reports diarrhea (resolving now), Denies nausea, Denies odynophagia and Denies vomiting Denies difficulty urinating, Denies dysuria, Denies nocturia and Denies urinary frequency Musc Reports back pain (on and off), Denies arthralgias and Denies neck pain Skin/Breast Details: (+) few scattered keratotic/hyperpigmented raised lesions Denies rash Neuro Denies dizziness and Denies headache(s) Endo Denies fatigue and Denies palpitations Physical exam (Primary Care) Vital Signs: Last Vital Signs Pulse 72 08/31/24 14:15 BP 126/72 08/31/24 14:15 Pulse Ox 99 08/31/24 14:15 Oxygen Delivery Method Room Air 08/31/24 14:15 BMI result Body Mass Index 27.7 Tobacco/Smoking Status: Tobacco use Status Tobacco use date assessed 08/31/24 08/31/24 14:22 Patient Tobacco Use Status Current everyday Tobacco 08/31/24 14:22 e-Cigarette/Vaping Use Never Used 08/31/24 14:22 PHQ-9: PHQ-9 Score PHQ-9: Total score 2 08/31/24 14:22 Depression Screening Interpretation: Negative Thrive Assessment: Date of Thrive Assessment Date Thrive assessed 08/31/24 08/31/24 14:22 Currently or been in a relationship where the following occur: I choose not to answer Const General: no acute distress and alert HENMT Ears: TM's normal bilaterally and EAC's normal Throat: Yes posterior oropharynx normal and Yes tonsils normal (no TP congestion) Neck Neck: Yes supple and No lymphadenopathy Thyroid: Thyroid normal Resp Auscultation: clear to auscultation bilaterally, no rales and no wheezes Cardio Rate: regular rate Rhythm: regular rhythm Heart sounds: no murmurs GI Palpation (GI): Soft to palpation and nontender Auscultation: normal bowel sounds General: Yes no CVA tenderness Back/Spine/Pelvis Back: no CVA tenderness Thoracic/Lumbar Spine: lumbar spinal tenderness (mild) Skin Other: (+) few scattered hyperpigmented or slightly raised keratotic lesions on his arms and hands Rashes: no rashes Extrem General: Yes no clubbing, cyanosis or edema Results Reviewed Results Reviewed: Laboratory Tests 04/08/24 04/08/24 07:22 07:35 WBC 6.1 Hgb 16.1 Hct 45.8 Plt Count 271 Sodium 141 Potassium 4.1 Creatinine 0.87 Estimated GFR > 60 Fasting Glucose 112 H Hemoglobin A1c % 5.3 Calcium 10.0 D AST 31 ALT 33 Triglycerides 80 Cholesterol 245 H LDL Cholesterol, Calc 153 H HDL Cholesterol 76 Vitamin B1 <6 L Vitamin B6 9.1 Vitamin B12 534 25-OH Vitamin D Total 15.0 L Homocysteine 13.4 H TSH 1.52 Ur Specific [place] 1.015 Urine Protein Negative Urine Glucose (UA) Negative Urine Blood Negative Urine Nitrite Negative Ur Leukocyte Esterase Negative Coding Level of Care Code Est Pt Level 4 (37204) Diagnoses Pure hypercholesterolemia E78.00 Degeneration of intervertebral disc of lumbar region with discogenic back pain M51.360 Disc-related pain type: discogenic back pain only Primary osteoarthritis of left hip M16.12 Osteoarthritis type: primary Claudication of left lower extremity I73.9 Impaired fasting glucose R73.01 Alcohol use disorder F10.90 Thiamine deficiency E51.9 Vitamin B6 deficiency E53.1 Vitamin D deficiency E55.9 Hyperpigmented skin lesion L81.9 Smoker F17.200 Overweight (BMI 25.0-29.9) E66.3 Additional Codes PHQ-9 - 40602 - PHQ-9 Billing: Yes ([id number]) Assessment & Plan Assessment & Plan (1) Pure hypercholesterolemia: Code(s): E78.00 - Pure hypercholesterolemia, unspecified Category: Medical Plan: Results of his labs done back in March 2024 reviewed and discussed with patient - have advised him that his cholesterol numbers are still elevated but t hey have improved somewhat from his numbers back in 2021 Reinforced low cholesterol diet; patient prefers to continue with diet modification alone rather than taking medications to help lower his cholesterol Will recheck his labs and fasting lipids in 4 months for follow-up (2) Lumbar degenerative disc disease: Code(s): M51.36 - Other intervertebral disc degeneration, lumbar region Category: Medical Qualifiers: Disc-related pain type: discogenic back pain only Qualified Code(s): M51.360 - Other intervertebral disc degeneration, lumbar region with discogenic back pain only Plan: Lumbar spine MRI done back in 2020 revealed (+) multilevel degenerative disc disease with disc-osteophyte complexes, central canal, and bilateral neural foraminal stenosis There is (+) L4-L5 broad-based disc-osteophyte complex with a left paracentral disc protrusion, bilateral facet arthropathy, and thickening of the ligamentum flavum. This causes severe central canal stenosis as well as [id number] bilateral neural foraminal stenosis Also (+) L5-S1 broad-based disc bulge with bilateral facet arthropathy and thickening of the ligamentum flavum causing moderate central canal as well as severe bilateral neural foraminal stenosis. Reinforced activity and weight lifting restrictions Have advised him that if his lower back acts up again, we may need to send him for repeat MRI and refer him to Neurosurgery for further evaluation and management (3) Osteoarthritis of left hip: Code(s): M16.12 - Unilateral primary osteoarthritis, left hip Category: Medical Qualifiers: Osteoarthritis type: primary Qualified Code(s): M16.12 - Unilateral primary osteoarthritis, left hip Plan: Left hip x-rays done in June 2021 showed (+) left hip OA changes - arthritis at the left hip joint with joint space narrowing and osteophyte formation Will consider referring to Orthopedics for further management if his hip symptoms get worse (4) Claudication of left lower extremity: Code(s): I73.9 - Peripheral vascular disease, unspecified Category: Medical Plan: Arterial duplex of the left lower extremity done a couple of years ago on 07/27 revealed (+) some compromise in the left lower extremity (see below): Right leg: Mild calcified plaque. No visible stenosis. Normal peak systolic velocities and waveforms. Left: Mild calcified plaque. No visible stenosis. Increased peak systolic velocity in the left common femoral artery suggestive of mild stenosis. Abnormal waveforms in the proximal and mid SFA, and popliteal arteries and slightly decreased velocities compared to the right leg He is advised that his cholesterol numbers are still high on his recent labs and he needs to continue working on getting them lower Will consider referring him to vascular surgery symptoms persist or get worse (5) Impaired fasting glucose: Code(s): R73.01 - Impaired fasting glucose Category: Medical Plan: His HgbA1c was normal at 5.3% when last checked in March 2024 Reinforced low calorie/low carb diet, exercise as tolerated Will recheck his FBS and HgbA1c in 4 months for follow up (6) Alcohol use disorder: Code(s): F10.90 - Alcohol use, unspecified, uncomplicated Category: Medical Plan: He is again advised to try cutting back on his drinking Have advised him that we can refer him for help with this whenever he feels is ready to quit (7) Thiamine deficiency: Code(s): E51.9 - Thiamine deficiency, unspecified Category: Medical Plan: Will start him on Vitamin B complex QD (8) Vitamin B6 deficiency: Code(s): E53.1 - Pyridoxine deficiency Category: Medical Plan: Will start him on Vitamin B supplementation with Vitamin B complex QD (9) Vitamin D deficiency: Code(s): E55.9 - Vitamin D deficiency, unspecified Category: Medical Plan: He is advised that his Vitamin D level was low on his labs done a few months ago Will start patient on Vitamin D3 2000 units QD (10) Hyperpigmented skin lesion: Code(s): L81.9 - Disorder of pigmentation, unspecified Category: Medical Plan: Will refer him to dermatology for further evaluation and management (11) Smoker: Code(s): F17.200 - Nicotine dependence, unspecified, uncomplicated Category: Social Hx Plan: Patient is counseled again on complete smoking cessation (12) Overweight (BMI 25.0-29.9): Code(s): E66.3 - Overweight Category: Medical Plan: Reinforced diet/exercise as tolerated/lose weight Plan Follow up in 4 months Orders: Orders Lipid Panel 4 Months E78.00 - Pure hypercholesterolemia, unspecified Comprehensive [place]. Panel Fast 4 Months E78.00 - Pure hypercholesterolemia, unspecified Vitamin D 25-OH Total 4 Months E55.9 - Vitamin D deficiency, unspecified Vitamin B12 and Folate 4 Months E53.8 - Deficiency of other specified B group vitamins Complete Blood Count Auto Diff 4 Months D64.9 - Anemia, unspecified Hemoglobin A1c 4 Months E11.9 - Type 2 diabetes mellitus without complications TSH reflex Free T4 4 Months E78.00 - Pure hypercholesterolemia, unspecified UA CC w/rflx Micro + Cult 4 Months R30.0 - Dysuria Vitamin B1 4 Months E51.9 - Thiamine deficiency, unspecified Vitamin B6 4 Months E53.1 - Pyridoxine deficiency Referrals Dermatology Referral L81.9 - Disorder of pigmentation, unspecified Medications: New vitamin B complex 1 tab PO DAILY 90 days 90 tabs 3RF cholecalciferol (vitamin D3) 50 mcg PO DAILY 90 days 90 caps 3RF E55.9 - Vitamin D deficiency, unspecified
== END 2024-08-31 15:04 | disposition home or self-care (01) ==
LOC: HO.HMCH 14:15
PROVIDERS: PCP Internal Medicine; Visit Provider Internal Medicine
DX: E78.00 Pure hypercholesterolemia, unspecified (principal); M51.360 Other intervertebral disc degeneration, lumbar region with discogenic back pain only; M16.12 Unilateral primary osteoarthritis, left hip; I73.9 Peripheral vascular disease, unspecified; R73.01 Impaired fasting glucose; F10.90 Alcohol use, unspecified, uncomplicated; E51.9 Thiamine deficiency, unspecified; E53.1 Pyridoxine deficiency; E55.9 Vitamin D deficiency, unspecified; L81.9 Disorder of pigmentation, unspecified; F17.200 Nicotine dependence, unspecified, uncomplicated; E66.3 Overweight

== ENCOUNTER → 2024-08-31 14:14 | Outpatient (BNVA) | payer OTHER, SELFPAY | PROVIDERS: PCP Internal Medicine; Visit Provider Internal Medicine | DX: E78.00 Pure hypercholesterolemia, unspecified (principal); M51.360 Other intervertebral disc degeneration, lumbar region with discogenic back pain only; M16.12 Unilateral primary osteoarthritis, left hip; I73.9 Peripheral vascular disease, unspecified; R73.01 Impaired fasting glucose; F10.90 Alcohol use, unspecified, uncomplicated; E51.9 Thiamine deficiency, unspecified; E53.1 Pyridoxine deficiency; E55.9 Vitamin D deficiency, unspecified; L81.9 Disorder of pigmentation, unspecified; F17.200 Nicotine dependence, unspecified, uncomplicated; E66.3 Overweight; Z68.27 Body mass index [BMI] 27.0-27.9, adult | CPT/HCPCS: 96127; 99212 ==

== ENCOUNTER 2025-01-10 09:23 | Outpatient (REF) | payer OTHER, SELFPAY ==
[2025-01-10 09:37] LABS: MANUAL DIFF FLAG NO
[2025-01-10 09:56] LABS: Hematocrit 47.6 % (42.0-52.0); Hemoglobin 16.6 g/dl (14.0-18.0); Imm Gran Abs Auto 0.02 X10*3/uL (0.00-0.03); Imm Gran Pct Auto 0.3 % (0.0-0.4); Lymphocytes Absolute Auto 1.1 X10*3/uL (1.2-4.9); Mean Corpuscular HGB Conc 34.9 g/dl (31.0-36.0); Mean Corpuscular Hemoglobin 32.4 pg (27.0-33.0); Mean Corpuscular Volume 93.0 fL (80.0-98.0); NRBC Abs Auto 0.000 X10*3/uL (0.0-0.012); NRBC Pct Auto 0.0 /100WBC (0.0-0.2); Platelet Count 265 X10*3/uL (160-400); Red Blood Count 5.12 X10*6/uL (4.60-5.80); White Blood Count 5.7 X10*3/uL (4.8-10.8)
[2025-01-10 10:31] LABS: Hemoglobin A1C 147.3505 umol/L; Total Hemoglobin (HGBA1C) 4233.6941 umol/L
[2025-01-10 10:45] LABS: Alanine Aminotransferase 44 U/L (0-40); Albumin Level 4.9 g/dL (3.5-5.0); Alkaline Phosphatase 104 U/L (39-117); Anion Gap 13 (12-20); Aspartate Amino Transferase 33 U/L (5-37); Blood Urea Nitrogen 13 mg/dL (9-16); Calcium 9.7 mg/dL (8.4-10.2); Carbon Dioxide 27 mmol/L (22-29); Chloride 103 mmol/L (96-108); Cholesterol 269 mg/dL (<200); Estimated Glomerular Filt Rate > 60; HDL Cholesterol 71 mg/dL (>40); Potassium 4.3 mmol/L (3.3-5.1); Sodium 139 mmol/L (135-145); Total Protein 7.8 g/dL (6.5-8.0); Triglycerides 154 mg/dL (<150)
[2025-01-10 11:05] LABS: Appearance Urine Clear; Glucose Urine UA Negative (Negative); PH 7.0 (5.0-9.0); Specific Gravity - Urine 1.015 (1.005-1.025); UMIC TRIGGER UACC YES
[2025-01-10 11:08] LABS: Folate 8.3 ng/mL (> or = 4.0); Vitamin B12 510 pg/mL (200-900)
== END 2025-01-10 09:24 | disposition home or self-care (01) ==
LOC: HO.LAB 09:23
PROVIDERS: PCP Internal Medicine; Visit Provider Internal Medicine
DX: E78.00 Pure hypercholesterolemia, unspecified (principal); E55.9 Vitamin D deficiency, unspecified; E53.8 Deficiency of other specified B group vitamins; D64.9 Anemia, unspecified; E11.9 Type 2 diabetes mellitus without complications; E51.9 Thiamine deficiency, unspecified; E53.1 Pyridoxine deficiency; R30.0 Dysuria
CPT/HCPCS: 36415; 80053; 80061; 81001; 81003; 82306; 82607; 82746; 83036; 84207; 84425; 84443; 85025

== ENCOUNTER 2025-01-12 09:59 | Outpatient (AMB) | payer OTHER, SELFPAY ==
[2025-01-12 10:18] VITALS: BP 126/78; PULSE 65; O2SAT 97; BMI 27.8
--- NOTE | 2025-01-12 10:18 | MHC.PC.OV ---
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 Accompanied by: Self / Same As Patient Allergies No Known Drug Allergies Allergy (Mild, Verified 01/12/25 10:48) Unknown Medication List - Last Reconciled 01/12/25 by Lucio Muir MD cholecalciferol (vitamin D3) 50 mcg PO DAILY 90 days vitamin B complex 1 tab PO DAILY 90 days Tobacco use date assessed: 01/12/25 Dental Screening Dental Screen Date: 01/12/25 Did you have a dental visit in the last 12 months?: Yes Did you have a dental problem in the last 6 months where you did not have access to dental care?: No Was dental information given to patient?: Patient has dentist HPI hyperlipidemia HPI Details Patient comes in today for his follow up visit States that he feels okay but reports that he has been experiencing on and off pain in and around his left shoulder area lately Also notes (+) recurrent sensations of tightness/discomfort and sometimes pain over the left side of his chest - notes that this also occurs when he is sleeping at night (which wakes him up) and that they tend to slowly subside after a few minutes Notes that the pain would radiate often into the left shoulder and sometimes up into the left neck area Relates that he suffered some injury to his left shoulder last year and feels that most of his current symptoms are related to his shoulder injury He denies any associated SOB, dizziness or lightheadedness Denies any headaches No nausea/vomiting, no abdominal pain No change in bowel habits noted He had his follow up labs done a couple of days ago - to discuss his results [facility] Medical History (Updated 01/12/25 @ 10:57 by Lucio Muir MD) Vitamin D deficiency Alcohol use disorder Overweight (BMI 25.0-29.9) Osteoarthritis of left hip Smoker Lumbar degenerative disc disease Pure hypercholesterolemia Surgical History History of nasal surgery Family History Mother Heart problem Arthritis Father Kidney failure Alcohol abuse Other Substance abuse Social History Housing: House Alcohol intake: current Alcohol intake frequency: 3 or more drinks per day Alcohol type: beer Patient Tobacco Use Status: Current everyday Tobacco user Cigarette Packs Per Day: 1.5 e-Cigarette/Vaping Use: Never Used Second Hand Smoke Exposure: Yes service: No Current occupational status: unemployed Cognitive needs: No Hearing needs: No Vision needs: No Questionnaire PHQ-9 Over the last 2 weeks, how often have you been bothered by any of the following problems? Depression Screening Interpretation: Negative Depression Screening Done: Yes Source: Developed by Drs. Oscar Jolly, Miriam Riley, Darryn Prieto and colleagues, with an educational madhav from [employer]. Thrive Questionnaire Date Thrive assessed: 08/31/24 I am a: Patient What is your living situation today?: I have a steady place to live Within the past 12 months, did the food you bought not last and you didn't have the money to get more?: Never true Within the past 12 months, did you worry whether your food would run out before you got money to buy more?: Never true Do you have trouble paying for medicines?: No Do you have trouble getting transportation to medical appointments?: No Do you have trouble paying your heating and electricity bill?: No Do you have trouble taking care of your child, family member or friend?: No Do you have trouble with day-to-day activities such as bathing, preparing meals, shopping, managing finances, etc.?: No Are you currently unemployed and looking for a job?: No Are you interested in more education?: No Please select the resources that you would like help with: None Currently or been in a relationship where the following occur: I choose not to answer THRIVE Score: 0 AUDIT C Alcohol Use Questionnaire (AUDIT-C) 1. How often do you have a drink containing alcohol?: 2-3 times a week 2. How many drinks containing alcohol do you have on a typical day when you are drinking?: 1 or 2 3. How often do you have six or more drinks on one occasion?: Never Total Score: 3 Score Reviewed/Action Taken: Yes WILLAM-7 AMB Questionnaire WILLAM-7 Date WILLAM - 7 assessed: 08/31/24 Source: Developed by Drs. Oscar Jolly, Miriam Riley, Darryn Prieto and colleagues, with an educational madhav from [employer]. Review of Systems Const Denies chills, Denies fatigue, Denies fever(s) and Denies headache(s) ENT Denies dysphagia, Denies dizziness, Denies otalgia, Denies headache(s), Denies neck pain, Denies odynophagia and Denies sore throat Card Reports chest pain (on and off on the left side - see HPI for details), Denies palpitations and Denies dyspnea Resp Denies chest congestion, Denies cough and Denies dyspnea GI Denies abdominal pain, Denies constipation, Denies dysphagia, Denies heartburn, Denies diarrhea, Denies nausea, Denies odynophagia and Denies vomiting Denies difficulty urinating, Denies dysuria, Denies nocturia and Denies urinary frequency Musc Reports back pain (on and off), Reports arthralgias (recurrent - in and around the left shoulder area -(see HPI)) and Denies neck pain Skin/Breast Denies rash Neuro Denies dizziness and Denies headache(s) Endo Denies fatigue and Denies palpitations Physical exam (Primary Care) Vital Signs: Last Vital Signs Pulse 65 01/12/25 10:18 BP 126/78 01/12/25 10:18 Pulse Ox 97 01/12/25 10:18 Oxygen Delivery Method Room Air 01/12/25 10:18 BMI result Body Mass Index 27.8 Tobacco/Smoking Status: Tobacco use Status Tobacco use date assessed 01/12/25 01/12/25 10:25 Patient Tobacco Use Status Current everyday Tobacco 01/12/25 10:25 e-Cigarette/Vaping Use Never Used 01/12/25 10:25 Depression Screening Interpretation: Negative Thrive Assessment: Date of Thrive Assessment Date Thrive assessed 08/31/24 01/12/25 10:25 Currently or been in a relationship where the following occur: I choose not to answer Const General: no acute distress and alert HENMT Ears: TM's normal bilaterally and EAC's normal Throat: Yes posterior oropharynx normal and Yes tonsils normal (no TP congestion) Neck Neck: Yes supple and No lymphadenopathy Thyroid: Thyroid normal Chest Chest palpation & inspection: normal palpation of entire chest wall Resp Auscultation: clear to auscultation bilaterally, no rales and no wheezes Cardio Rate: regular rate Rhythm: regular rhythm Heart sounds: no murmurs GI Palpation (GI): Soft to palpation and nontender Auscultation: normal bowel sounds General: Yes no CVA tenderness Back/Spine/Pelvis Back: no CVA tenderness Thoracic/Lumbar Spine: lumbar spinal tenderness (mild) Skin Rashes: no rashes Extrem General: Yes no clubbing, cyanosis or edema Left upper extremity: shoulder/upper arm Details: tenderness Location: of the A-C joint Results Reviewed Results Reviewed: Laboratory Tests 04/08/24 01/10/25 01/10/25 07:22 09:29 09:36 WBC 5.7 Hgb 16.6 Hct 47.6 Plt Count 265 Sodium 139 Potassium 4.3 Creatinine 0.93 Estimated GFR > 60 Fasting Glucose 121 H Hemoglobin A1c % 5.3 Calcium 9.7 AST 33 ALT 44 H Triglycerides 80 154 H Cholesterol 245 H 269 H LDL Cholesterol, Calc 153 H 168 H HDL Cholesterol 76 71 Vitamin B12 510 25-OH Vitamin D Total 40.9 TSH 1.73 Ur Specific [place] 1.015 Urine Protein Negative Urine Glucose (UA) Negative Urine Blood Negative Urine Nitrite Negative Ur Leukocyte Esterase Trace H Coding Level of Care Code Est Pt Level 4 (77172) Complex EM visit Add On G2211 Diagnoses Left-sided chest pain R07.9 Pure hypercholesterolemia E78.00 Degeneration of intervertebral disc of lumbar region with discogenic back pain M51.360 Disc-related pain type: discogenic back pain only Primary osteoarthritis of left hip M16.12 Osteoarthritis type: primary Claudication of left lower extremity I73.9 Impaired fasting glucose R73.01 Alcohol use disorder F10.90 Thiamine deficiency E51.9 Vitamin B6 deficiency E53.1 Vitamin D deficiency E55.9 Smoker F17.200 Overweight (BMI 25.0-29.9) E66.3 Assessment & Plan Assessment & Plan (1) Left-sided chest pain: Code(s): R07.9 - Chest pain, unspecified Category: Medical Plan: Have advised patient his recent chest pains may likely be due to his shoulder injury but in light of his high cholesterol levels, elevated homocysteine level (March 2024) and other risk factors (smoking and ETOH), he will need to have this checked out further Will send him for cardiac stress testing NANI to r/o cardiac etiologies of his symptoms and if his stress test is positive, then he will need to undergo coronary angiography NANI (2) Pure hypercholesterolemia: Code(s): E78.00 - Pure hypercholesterolemia, unspecified Category: Medical Plan: Results of his labs done a couple of days ago reviewed and discussed with patient - have advised him that his cholesterol levels have increased further from his numbers last year, with his LDL cholesterol now at 168 mg/dl Reinforced low cholesterol diet Patient still prefers to continue with diet modification alone rather than taking medications to help lower his cholesterol but have advised him that with his recent symptoms of left-sided chest pains, which should be further evaluated NANI, and with a very high homocysteine level when it was checked back in March 2024, he really should start taking Rx to get his cholesterol numbers down Will start him on Atorvastatin 20 mg QD Will recheck his labs and fasting lipids in 3 months for follow-up (3) Lumbar degenerative disc disease: Code(s): M51.36 - Other intervertebral disc degeneration, lumbar region Category: Medical Qualifiers: Disc-related pain type: discogenic back pain only Qualified Code(s): M51.360 - Other intervertebral disc degeneration, lumbar region with discogenic back pain only Plan: Lumbar spine MRI done back in 2020 revealed (+) multilevel degenerative disc disease with disc-osteophyte complexes, central canal, and bilateral neural foraminal stenosis There is (+) L4-L5 broad-based disc-osteophyte complex with a left paracentral disc protrusion, bilateral facet arthropathy, and thickening of the ligamentum flavum. This causes severe central canal stenosis as well as [id number] bilateral neural foraminal stenosis Also (+) L5-S1 broad-based disc bulge with bilateral facet arthropathy and thickening of the ligamentum flavum causing moderate central canal as well as severe bilateral neural foraminal stenosis. Reinforced activity and weight lifting restrictions Have advised him that if his lower back acts up again, we may need to send him for repeat MRI and refer him to Neurosurgery for further evaluation and management (4) Osteoarthritis of left hip: Code(s): M16.12 - Unilateral primary osteoarthritis, left hip Category: Medical Qualifiers: Osteoarthritis type: primary Qualified Code(s): M16.12 - Unilateral primary osteoarthritis, left hip Plan: Left hip x-rays done in June 2021 showed (+) left hip OA changes - arthritis at the left hip joint with joint space narrowing and osteophyte formation Will consider referring to Orthopedics for further management if his hip symptoms get worse (5) Claudication of left lower extremity: Code(s): I73.9 - Peripheral vascular disease, unspecified Category: Medical Plan: Arterial duplex of the left lower extremity done a couple of years ago on 08/07/2021 revealed (+) some compromise in the left lower extremity (see below): Right leg: Mild calcified plaque. No visible stenosis. Normal peak systolic velocities and waveforms. Left: Mild calcified plaque. No visible stenosis. Increased peak systolic velocity in the left common femoral artery suggestive of mild stenosis. Abnormal waveforms in the proximal and mid SFA, and popliteal arteries and slightly decreased velocities compared to the right leg He is advised that his cholesterol numbers are still high on his recent labs and he needs to continue working on getting them lower Will consider referring him to vascular surgery if his symptoms persist or get worse (6) Impaired fasting glucose: Code(s): R73.01 - Impaired fasting glucose Category: Medical Plan: His FBS was high at 121 mg/dl but HgbA1c remains normal at 5.3% on his recent labs; HgbA1c was also at 5.3% when previously checked in March 2024 Reinforced low calorie/low carb diet, exercise as tolerated Will recheck his FBS and HgbA1c in 3 months for follow up (7) Alcohol use disorder: Code(s): F10.90 - Alcohol use, unspecified, uncomplicated Category: Medical Plan: He is again advised to try cutting back on his drinking Have advised him that we can refer him for help with this whenever he feels is ready to quit (8) Thiamine deficiency: Code(s): E51.9 - Thiamine deficiency, unspecified Category: Medical Plan: Continue Vitamin B complex QD (9) Vitamin B6 deficiency: Code(s): E53.1 - Pyridoxine deficiency Category: Medical Plan: Continue Vitamin B supplementation with Vitamin B complex QD (10) Vitamin D deficiency: Code(s): E55.9 - Vitamin D deficiency, unspecified Category: Medical Plan: Continue Vitamin D3 2000 units QD (11) Smoker: Code(s): F17.200 - Nicotine dependence, unspecified, uncomplicated Category: Social Hx Plan: Patient is counseled again on complete smoking cessation (12) Overweight (BMI 25.0-29.9): Code(s): E66.3 - Overweight Category: Medical Plan: Reinforced diet/exercise as tolerated/lose weight Plan Follow up in 3 months Orders: Orders Comprehensive [place]. Panel Fast 3 Months E78.00 - Pure hypercholesterolemia, unspecified Lipid Panel 3 Months E78.00 - Pure hypercholesterolemia, unspecified UA CC w/rflx Micro + Cult 3 Months R30.0 - Dysuria Vitamin D 25-OH Total 3 Months E55.9 - Vitamin D deficiency, unspecified Vitamin B12 and Folate 3 Months E53.8 - Deficiency of other specified B group vitamins Vitamin B1 3 Months E51.9 - Thiamine deficiency, unspecified Vitamin B6 3 Months E53.1 - Pyridoxine deficiency CA cardiopulmonary stress test Today E78.00 - Pure hypercholesterolemia, unspecified, R07.9 - Chest pain, unspecified Complete Blood Count Auto Diff 3 Months D64.9 - Anemia, unspecified Hemoglobin A1c 3 Months E11.9 - Type 2 diabetes mellitus without complications TSH reflex Free T4 3 Months E78.00 - Pure hypercholesterolemia, unspecified Medications: New atorvastatin (Lipitor) 20 mg PO BEDTIME 90 tabs 1RF 90 days
--- OUTSIDE RECORDS SUMMARY | 2025-01-12 12:02 | XMS_ITS | Clinical Summary ---
Author Organization [facility] Address [address] [id number] Phone Care Team Providers Care Clean Room Technician Name Role Phone Unavailable Primary Care Provider Unavailabl e Social History Tobacco Use Types Packs/Day Years Used Date Smoking Tobacco: Never Assessed Sex and Gender Information Value Date Recorded Sex Assigned at Not on file Legal Sex Male 9:40 PM EDT Gender Identity Not on file Sexual Orientation Not on file Plan of Treatment Not on file Medical Devices Not on file Additional Source Comments The information contained in this document represents components of the legal health record. It is not the complete legal health record.[facility]
--- OUTSIDE RECORDS SUMMARY | 2025-01-12 12:02 | XMS_ITS | Encounter Summary ---
Author Organization [facility] Address [address] [facility] [address] [place] [id number] Phone Care Team Providers Care Brand Director Name Role Phone Unavailable Primary Care Provider Unavailabl e Encounter Details Date Type Department Care Team (Latest Contact Info) Description 05/24/2020 Ancillary Orders Virtual Department [address] [place] [id number] Ana Rosa Sands NP [address] [place] [phone] [email or web address] Lumbosacral radiculopathy Social History Tobacco Use Types Packs/Day Years Used Date Smoking Tobacco: Never Assessed Sex and Gender Information Value Date Recorded Sex Assigned at Not on file Legal Sex Male 9:40 PM EDT Gender Identity Not on file Sexual Orientation Not on file documented as of this encounter Plan of Treatment Not on file documented as of this encounter Visit Diagnoses Diagnosis Lumbosacral radiculopathy Thoracic or lumbosacral neuritis or radiculitis, unspecified documented in this encounter Additional Source Comments The information contained in this document represents components of the legal health record. It is not the complete legal health record.[facility]
== END 2025-01-12 11:02 | disposition home or self-care (01) ==
LOC: HO.HMCH 10:00
PROVIDERS: PCP Internal Medicine; Visit Provider Internal Medicine
DX: R07.9 Chest pain, unspecified (principal); E78.00 Pure hypercholesterolemia, unspecified; M51.360 Other intervertebral disc degeneration, lumbar region with discogenic back pain only; M16.12 Unilateral primary osteoarthritis, left hip; I73.9 Peripheral vascular disease, unspecified; R73.01 Impaired fasting glucose; F10.90 Alcohol use, unspecified, uncomplicated; E51.9 Thiamine deficiency, unspecified; E53.1 Pyridoxine deficiency; E55.9 Vitamin D deficiency, unspecified; F17.200 Nicotine dependence, unspecified, uncomplicated; E66.3 Overweight

== ENCOUNTER → 2025-01-12 09:59 | Outpatient (BNVA) | payer OTHER, SELFPAY | PROVIDERS: PCP Internal Medicine; Visit Provider Internal Medicine | DX: M51.360 Other intervertebral disc degeneration, lumbar region with discogenic back pain only (principal); E78.5 Hyperlipidemia, unspecified; R07.9 Chest pain, unspecified; E78.00 Pure hypercholesterolemia, unspecified; M16.12 Unilateral primary osteoarthritis, left hip; I73.9 Peripheral vascular disease, unspecified; R73.01 Impaired fasting glucose; F10.90 Alcohol use, unspecified, uncomplicated; E51.9 Thiamine deficiency, unspecified; E53.1 Pyridoxine deficiency; E55.9 Vitamin D deficiency, unspecified; E66.3 Overweight; F17.200 Nicotine dependence, unspecified, uncomplicated; Z68.27 Body mass index [BMI] 27.0-27.9, adult | CPT/HCPCS: 99212 ==